=== PATIENT | male | born 1970 | race Two or more races ===

== ENCOUNTER 2016-12-28 07:21 | Emergency (ER) | payer OTHER ==
[~2016-12-28] VITALS: Ht 172.7 cm; Wt 90.7 kg
[2016-12-28] MEDS ORDERED: DIPHTH,PERTUSS(ACELL),TET TOX 0.5 ML DISP.SYRIN. VAX IM ONE (07:45)
[2016-12-28] MEDS ORDERED: LIDOCAINE 1% / SOD BICARB 8.4% 20 ML VIAL. IJ ONE (07:45)
--- NOTE | 2016-12-28 08:52 | PHYS DOC ---
Past Medical History Past Medical History: High Cholesterol, Hypertension Past Surgical History: No Surgical History Alcohol Use: None Drug Use: None Adult General Chief Complaint Chief Complaint: LACERATION/AVULSION HPI HPI Patient is a 46 year old male who presents with left index finger laceration. Patient states he got cut by a piece of sheet metal at work. Patient speaks a few Burkinan words interpretation for Ukrainian was provided by a friend Review of Systems Review of Systems Constitutional: Denies fever or chills [] Musculoskeletal: Denies back pain or joint pain [] Integument: left index finger laceration Neurologic: Denies headache, focal weakness or sensory changes [] Current Medications Current Medications Current Medications Medications (Trade) Dose Ordered Sig/[place] Start Time Stop Time Status Last Admin Dose Admin Diphtheria/ Tetanus/Acell Pertussis (Boostrix) 0.5 ml ONCE ONCE 12/28/16 07:45 12/28/16 07:46 DC 12/28/16 07:43 0.5 ML Lidocaine/Sodium Bicarbonate (Buffered Lidocaine 1%) 20 ml 1X ONCE 12/28/16 07:45 12/28/16 07:46 DC 12/28/16 07:41 20 ML Allergies Allergies Allergies Coded Allergies Type Severity Reaction Last Updated Verified No Known Drug Allergies 12/28/16 No Physical Exam Physical Exam Constitutional: Well developed, well nourished, no acute distress, non-toxic appearance. [] Skin: Left ventral mid phalanx of the left index finger with a laceration approximately 4 cm long. There is no tendon involvement. Patient able to flex and extend the left index finger at the MIP PIP and DIP joints. +2 left radial pulse. Cap refill less than 2 seconds the left index finger. Adequate radius sensation to the left index finger. Back: No tenderness, no CVA tenderness. [] Extremities: No tenderness, no cyanosis, no clubbing, ROM intact, no edema. [] Neurologic: Alert and oriented X 3, normal motor function, normal sensory function, no focal deficits noted. [] Psychologic: Affect normal, judgement normal, mood normal. [] Current Patient Data Vital Signs Vital Signs Date Time Temp Pulse Resp B/P (MAP) Pulse Ox O2 Delivery O2 Flow Rate FiO2 12/28/16 07:29 97.4 88 18 168/108 (128) 97 Room Air 97.4 EKG EKG [] Radiology/Procedures Radiology/Procedures Indication: []Left index finger laceration Procedure: The patient was placed in the appropriate position and anesthesia around the laceration was 1% buffered lidocaine, the laceration was explored for foreign objects, none was found. The laceration was cleaned with 100 ML of normal saline and sterilized with Betadine. The laceration was closed with 11 interrupted sutures using 5. 0 Ethilon. The wound was covered with nonstick dressing. Total repaired wound length: Approximately 4 cm long Other Items: none The patient tolerated the procedure well Complications:none Course & Med Decision Making Course & Med Decision Making Pertinent Labs and Imaging studies reviewed. (See chart for details) Patient has left index finger laceration that was closed by me as noted in procedures. Tetanus is up-to-date. Follow-up with ED or PCP in 7-10 days for suture removal. Provided wound care instructions as well as return precautions. Dragon Disclaimer Dragon Disclaimer This electronic medical record was generated, in whole or in part, using a voice recognition dictation system. Departure Departure Impression: Primary Impression: Laceration of finger, index Disposition: 01 HOME, SELF-CARE Condition: STABLE Referrals: NO PCP (PCP) Follow-up with the ED in 7-10 days for suture removal Patient Instructions: Fingertip Laceration Additional Instructions: You were seen with left index finger laceration. You can shower. Keep the area clean and dry. Apply Neosporin to the area twice a day. Monitor the area for signs and symptoms of infection including but not limited to increased redness to the area, warmth to the area, yellow drainage from the area and return to the ED if they occur. Follow-up with your doctor in 7-10 days for suture removal or you can come back to the emergency room. Problem Qualifiers Primary Impression: Laceration of finger, index Encounter type: initial encounter Damage to nail status: without damage Foreign body presence: without foreign body Laterality: left Qualified Codes : S61.211A - Laceration without foreign body of left index finger without damage to nail, initial encounter SULEMAN PEDROZA APRN Dec 28, 2016 08:52
[2016-12-28 08:59] VITALS: BP 153/91
== END 2016-12-28 08:59 | disposition home or self-care (01) ==
LOC: ER 07:21
DX: S61.211A Laceration without foreign body of left index finger without damage to nail, initial encounter (principal); E78.00 Pure hypercholesterolemia, unspecified; I10 Essential (primary) hypertension; Y28.8XXA Contact with other sharp object, undetermined intent, initial encounter; Y99.0 Civilian activity done for income or pay; Y99.8 Other external cause status; Y92.69 Other specified industrial and construction area as the place of occurrence of the external cause
CPT/HCPCS: 12002; 90471; 90715; 99283-25